=== PATIENT | male | born 1955 | race Caucasian/White ===

== ENCOUNTER 2017-02-07 06:34 | Emergency (ER) | payer OTHER ==
[~2017-02-07] VITALS: Ht 182.9 cm; Wt 100.9 kg
[~2017-02-07 06:34] MED LIST: FAMOTIDINE20 MG PO; GLUCOMETER MC; LATANOPROST2.5 ML BOTH EYES; METFORMIN HCL500 MG PO; TEST STRIPS MC
[2017-02-07 07:19] LABS: BASOPHIL COUNT 0.1 K/uL (0-0.1); EOSINOPHIL (%) 0.4 % (0-5); EOSINOPHIL COUNT 0.1 K/uL (0-0.3); HEMATOCRIT 39.1 % (38.0-50.0); IMMATURE GRANULOCYTE (%) 0.3 % (0.0-0.7); INSTRUMENT ABS NEUTROPHIL CT 10.5 K/uL; LYMPHOCYTE COUNT 1.2 K/uL (1.0-2.8); MCH 30.5 PG (29.0-34.0); MCHC 35.3 G/DL (30.0-36.0); MCV 86.5 FL (86-99); MEAN PLAT.VOLUME 10.6 uM^3 (9.0-12.4); MONOCYTE (%) 3.7 % (3-12); MONOCYTE COUNT 0.5 K/uL (0-0.8); NEUTROPHIL (%) 85.6 % (45-76); NEUTROPHIL COUNT 10.5 K/uL (1.8-6.4); PLATELET COUNT 333 K/uL (156-360); RBC DIS.WIDTH-CV 12.7 % (11.8-14.6); RBC DIS.WIDTH-SD 40.5 % (39-53); RED BLOOD COUNT 4.52 M/uL (4.00-5.50); WHITE BLOOD COUNT 12.3 K/uL (4.1-10.2)
[2017-02-07 07:48] LABS: ANION GAP 16 MEQ/L (2-14); CHLORIDE 99 MEQ/L (99-109); POTASSIUM 3.7 MEQ/L (3.7-5.4); SAMPLE HEMOLYSIS CHECK 0; SAMPLE ICTERIC CHECK 0; SAMPLE LIPEMIA CHECK 0; SODIUM 137 MEQ/L (136-147); TOTAL BILIRUBIN 0.8 MG/DL (0.0-1.0)
[2017-02-07 07:54] LABS: ALKALINE PHOSPHATASE 57 IU/L (3-129); GFR ESTIMATE (CALCULATED) > 59 mL/min/; GLUCOSE 254 mg/dL (70-99); UREA NITROGEN (BUN) 24 mg/dL (9-23)
[2017-02-07 14:08] LABS: COLOR BLOODY ((YELLOW))
[2017-02-07 14:09] LABS: BILIRUBIN NEGATIVE; GLUCOSE (STRIP) NEGATIVE
[2017-02-07 14:10] LABS: ADD MIUA? YES; BLOOD LARGE; PROTEIN (STRIP) 300; UROBILINOGEN 0.2 MG/DL (0.2-1.0)
[2017-02-07 14:12] LABS: RED BLOOD CELLS TNTC /HPF (0-5); SPECIFIC GRAVITY 1.014 (1.000-1.030); UCUL ADDED? YES
[2017-02-07] MEDS ORDERED: DETROL1 MG PO (14:22)
[2017-02-07 15:14] VITALS: BP 135/78
== END 2017-02-07 15:21 | disposition home or self-care (01) ==
LOC: EME 06:34
PROVIDERS: Emergency Medicine
PROC: 0T2BX0Z Change Drainage Device in Bladder, External Approach (ICD-10-PCS; principal; 2017-02-07)
DX: T83.098A Other mechanical complication of other urinary catheter, initial encounter (principal); R31.0 Gross hematuria; R33.9 Retention of urine, unspecified; Z98.890 Other specified postprocedural states; E11.65 Type 2 diabetes mellitus with hyperglycemia
CPT/HCPCS: 74176; 80053; 81003; 85025; 87086; 99281; 99285; J2270; J2405

== ENCOUNTER 2017-02-09 01:19 | Emergency (ER) | payer OTHER ==
[~2017-02-09] VITALS: Ht 182.9 cm; Wt 99.8 kg
[~2017-02-09 01:19] MED LIST changes: +DETROL1 MG PO
[2017-02-09 01:55] LABS: CHLORIDE 104 mEq/L (99-109); POTASSIUM 3.7 mEq/L (3.7-5.4); SODIUM 140 mEq/L (136-147)
[2017-02-09 01:56] LABS: HEMATOCRIT 34.3 % (38.0-50.0); MCH 30.7 PG (29.0-34.0); MCHC 34.4 G/DL (30.0-36.0); MCV 89.3 FL (86-99); MEAN PLAT.VOLUME 10.9 uM^3 (9.0-12.4); PLATELET COUNT 293 K/uL (156-360); RBC DIS.WIDTH-CV 12.9 % (11.8-14.6); RBC DIS.WIDTH-SD 42.5 % (39-53); RED BLOOD COUNT 3.84 M/uL (4.00-5.50)
[2017-02-09 01:57] LABS: GLUCOSE 136 mg/dL (70-99)
[2017-02-09 01:58] LABS: ANION GAP 10 MEQ/L (2-14)
[2017-02-09 01:59] LABS: TOTAL BILIRUBIN 0.5 mg/dL (0.0-1.0)
[2017-02-09 02:01] LABS: ALKALINE PHOSPHATASE 53 IU/L (3-129); GFR ESTIMATE (CALCULATED) > 59 mL/min/
[2017-02-09 02:02] LABS: UREA NITROGEN (BUN) 19 mg/dL (9-23)
[2017-02-09] MEDS ORDERED: KEFLEX500 MG PO (03:16)
[2017-02-09 06:04] VITALS: BP 148/78
== END 2017-02-09 06:05 | disposition home or self-care (01) ==
LOC: EME 01:19
PROC: 0T2BX0Z Change Drainage Device in Bladder, External Approach (ICD-10-PCS; principal; 2017-02-09)
DX: T83.091A Other mechanical complication of indwelling urethral catheter, initial encounter (principal); R31.9 Hematuria, unspecified; R33.9 Retention of urine, unspecified; Z98.890 Other specified postprocedural states; Z46.6 Encounter for fitting and adjustment of urinary device
CPT/HCPCS: 80053; 81003; 85027; 99281; 99284; J2270

== ENCOUNTER 2017-02-09 13:40 | Emergency (ER) | payer OTHER ==
[~2017-02-09] VITALS: Ht 182.9 cm; Wt 100.0 kg
[~2017-02-09 13:40] MED LIST changes: +KEFLEX500 MG PO
[2017-02-09 14:32] LABS: EOSINOPHIL COUNT 0.3 K/uL (0-0.3); HEMATOCRIT 31.7 % (38.0-50.0); IMMATURE GRANULOCYTE (%) 0.2 % (0.0-0.7); INSTRUMENT ABS NEUTROPHIL CT 6.2 K/uL; LYMPHOCYTE COUNT 1.2 K/uL (1.0-2.8); MCH 30.3 PG (29.0-34.0); MCHC 34.1 G/DL (30.0-36.0); MCV 88.8 FL (86-99); MEAN PLAT.VOLUME 10.3 uM^3 (9.0-12.4); MONOCYTE (%) 7.6 % (3-12); MONOCYTE COUNT 0.6 K/uL (0-0.8); NEUTROPHIL (%) 74.9 % (45-76); NEUTROPHIL COUNT 6.2 K/uL (1.8-6.4); PLATELET COUNT 271 K/uL (156-360); RBC DIS.WIDTH-CV 12.9 % (11.8-14.6); RBC DIS.WIDTH-SD 41.8 % (39-53); RED BLOOD COUNT 3.57 M/uL (4.00-5.50); WHITE BLOOD COUNT 8.3 K/uL (4.1-10.2)
[2017-02-09 14:40] LABS: CHLORIDE 104 mEq/L (99-109); POTASSIUM 3.7 mEq/L (3.7-5.4); SODIUM 138 mEq/L (136-147)
[2017-02-09 14:42] LABS: GLUCOSE 134 mg/dL (70-99)
[2017-02-09 14:44] LABS: ANION GAP 9 MEQ/L (2-14)
[2017-02-09 14:46] LABS: GFR ESTIMATE (CALCULATED) > 59 mL/min/
[2017-02-09 14:47] LABS: UREA NITROGEN (BUN) 18 mg/dL (9-23)
[2017-02-09 19:09] VITALS: BP 123/75
== END 2017-02-09 19:09 | disposition home or self-care (01) ==
LOC: EME 13:40
PROVIDERS: Physician Assistant
PROC: 0T9B70Z Drainage of Bladder with Drainage Device, Via Natural or Artificial Opening (ICD-10-PCS; principal; 2017-02-09)
DX: Z46.6 Encounter for fitting and adjustment of urinary device (principal); R31.9 Hematuria, unspecified; E11.9 Type 2 diabetes mellitus without complications
CPT/HCPCS: 80048; 81003; 85025; 99281; 99284; J2060

== ENCOUNTER 2017-02-12 21:42 | Emergency (ER) | payer OTHER ==
[~2017-02-12] VITALS: Ht 182.9 cm; Wt 101.1 kg
[2017-02-12 23:31] LABS: HEMATOCRIT 31.7 % (38.0-50.0); MCH 30.8 PG (29.0-34.0); MCHC 34.7 G/DL (30.0-36.0); MCV 88.8 FL (86-99); MEAN PLAT.VOLUME 10.7 uM^3 (9.0-12.4); RBC DIS.WIDTH-CV 12.9 % (11.8-14.6); RBC DIS.WIDTH-SD 42.3 % (39-53); RED BLOOD COUNT 3.57 M/uL (4.00-5.50); WHITE BLOOD COUNT 6.6 K/uL (4.1-10.2)
[2017-02-12 23:32] LABS: PLATELET COUNT 359 K/uL (156-360)
[2017-02-12 23:36] LABS: CHLORIDE 106 mEq/L (99-109); POTASSIUM 4.3 mEq/L (3.7-5.4); SODIUM 141 mEq/L (136-147)
[2017-02-12 23:38] LABS: GLUCOSE 168 mg/dL (70-99)
[2017-02-12 23:39] LABS: ANION GAP 9 MEQ/L (2-14)
[2017-02-12 23:42] LABS: ALKALINE PHOSPHATASE 63 IU/L (3-129); GFR ESTIMATE (CALCULATED) > 59 mL/min/
[2017-02-12 23:43] LABS: UREA NITROGEN (BUN) 18 mg/dL (9-23)
[2017-02-12 23:49] LABS: TOTAL BILIRUBIN 0.3 mg/dL (0.0-1.0)
[2017-02-13 00:05] LABS: ADD MIUA? YES; BILIRUBIN NEGATIVE; BLOOD LARGE; GLUCOSE (STRIP) NEGATIVE; KETONES NEGATIVE; LEUKOCYTES SMALL; NITRITE NEGATIVE; PROTEIN (STRIP) 100; SPECIFIC GRAVITY 1.015 (1.000-1.030)
[2017-02-13 00:16] LABS: COLOR RED ((YELLOW))
[2017-02-13 00:57] LABS: RED BLOOD CELLS TNTC /HPF (0-5); UCUL ADDED? YES
[2017-02-13 01:03] VITALS: BP 160/89
== END 2017-02-13 01:16 | disposition home or self-care (01) ==
LOC: EME 21:42
DX: R31.9 Hematuria, unspecified (principal); E11.9 Type 2 diabetes mellitus without complications; Z98.890 Other specified postprocedural states
CPT/HCPCS: 80053; 81003; 85027; 87086; 99281; 99284

== ENCOUNTER 2018-01-16 15:07 | Emergency (ER) | payer OTHER ==
[~2018-01-16] VITALS: Ht 180.3 cm; Wt 111.3 kg
[2018-01-16] MEDS ORDERED: NORCO 5/3251 TABLET PO (18:30)
[2018-01-16] MEDS ORDERED: FLEXERIL10 MG PO (18:30)
[2018-01-16 19:43] VITALS: BP 147/74
== END 2018-01-16 19:44 | disposition home or self-care (01) ==
LOC: EME 15:07
DX: M48.54XA Collapsed vertebra, not elsewhere classified, thoracic region, initial encounter for fracture (principal); S39.012A Strain of muscle, fascia and tendon of lower back, initial encounter; M79.604 Pain in right leg; X58.XXXA Exposure to other specified factors, initial encounter; Y93.H1 Activity, digging, shoveling and raking; R06.00 Dyspnea, unspecified; M43.16 Spondylolisthesis, lumbar region; M47.896 Other spondylosis, lumbar region; Z85.51 Personal history of malignant neoplasm of bladder
CPT/HCPCS: 72100; 99281; 99284; J2270

== ENCOUNTER 2018-01-21 15:36 | Emergency (ER) | payer OTHER ==
[~2018-01-21] VITALS: Ht 182.9 cm; Wt 111.2 kg
[~2018-01-21 15:36] MED LIST changes: +FLEXERIL10 MG PO; +NORCO 5/3251 TABLET PO
[2018-01-21] MEDS ORDERED: PERCOCET 5/31 TABLET PO (18:25)
[2018-01-21 18:48] VITALS: BP 148/89
== END 2018-01-21 18:48 | disposition home or self-care (01) ==
LOC: EME 15:36
DX: S22.080A Wedge compression fracture of T11-T12 vertebra, initial encounter for closed fracture (principal); M54.5 Low back pain; X50.0XXA Overexertion from strenuous movement or load, initial encounter; Y93.H1 Activity, digging, shoveling and raking; E11.9 Type 2 diabetes mellitus without complications
CPT/HCPCS: 99281; 99283; J1885

== ENCOUNTER → 2018-01-31 | Outpatient (CLI) | payer OTHER ==
[~2018-01-31] MED LIST changes: +PERCOCET 5/31 TABLET PO
== END | disposition home or self-care (01) ==
LOC: CDC 15:14
DX: Z01.810 Encounter for preprocedural cardiovascular examination (principal); R94.31 Abnormal electrocardiogram [ECG] [EKG]
CPT/HCPCS: 93000